=== PATIENT | female | born 1970 | race Caucasian/White ===

== ENCOUNTER → 2020-07-06 | Outpatient (CLI) | payer OTHER | LOC: OPSV 11:30 | DX: R63.4 Abnormal weight loss (principal); R68.81 Early satiety; R10.30 Lower abdominal pain, unspecified; K59.00 Constipation, unspecified; R50.9 Fever, unspecified | CPT/HCPCS: G0463 ==

== ENCOUNTER → 2021-10-04 | Outpatient (CLI) | payer OTHER | LOC: KOH-I 15:51 → EDSEX 15:51 → KOH-I 16:00 | DX: M16.12 Unilateral primary osteoarthritis, left hip (principal) | CPT/HCPCS: 73700 ==